=== PATIENT | female | born 1955 | race African-American/Black ===

== ENCOUNTER 2019-02-18 06:03 | Day surgery (SDC) | payer OTHER ==
[2019-02-10 13:41] VITALS: BMI 22.4
[2019-02-18] MEDS ORDERED: MIDAZOLAM HCL 2 MG/2 ML SINGLE DOSE VIAL ONE (06:43)
[2019-02-18] MEDS ORDERED: ROPIVACAINE HCL 0.5% 30ML VIAL ONE (06:43)
[2019-02-18] MEDS ORDERED: EPHEDRINE SULFATE/0.9% NACL/PF 50 MG/10 ML SYRINGE NR ONE (07:20)
[2019-02-18] MEDS ORDERED: PROPOFOL 20 ML ONE ×2 (07:44→09:15)
[2019-02-18] MEDS ORDERED: BENZOIN/ALOE VERA/STORAX/TOLU 58 ML BOTTLE ONE (09:11)
--- NOTE | 2019-02-18 09:43 | PN ---
Progress Note (short form) - Note Progress Note: 63F s/p RIGHT shoulder open Treva procedure, Neer Decompression, & full thickness primary rotator cuff repair POD #0. -Pain control: Vicodin, NSAID's ordered. -Incentive spirometry. -No chemical DVT PPx. -RUE sling. -No RIGHT shoulder ROM. -Daily RIGHT elbow, wrist & hand ROM. -Keep dressing clean & dry. -f/u in [facility] in 7-10 days; call for appointment; . Amari Thakur MD (Orthopaedic Surgery).
--- NOTE | 2019-02-18 09:45 | OP ---
Operative Note - Note: Operative Date: 02/18/19 Pre-Operative Diagnosis: Right shoulder impingement syndrome and rotator cuff tear Operation: Right shoulder open: 1. Treva procedure. 2. Neer decompression. 3. Primary rotator cuff repair (5 x #1 vicryl stitches) Findings: Full thickness anterolateral supraspinatus tear Post-Operative Diagnosis: Same as Pre-op Surgeon: Amari Thakur Hand Candy Cutter: Braden Thakur Anesthesiologist/EQUAL OPPORTUNITY REPRESENTATIVE: hSady Luz Anesthesia: General, Local Specimens Removed: Excision arthroplasty AC joint Estimated Blood Loss (mls): 25 Fluid Volume Replaced (mls): 800 (Crystalloid) Operative Report Dictated: Yes
[2019-02-18 11:10] VITALS: TEMP 97.7
[2019-02-18 12:24] VITALS: BP 112/73; PULSE 75
--- NOTE | 2019-03-04 09:54 | OP ---
Date of Operation: 02/18/2019 Surgeon: Amari Thakur MD Milk Bottler: Braden Thakur MD Pre-Operative Diagnosis: Right shoulder: 1. Impingement syndrome. 2. Rotator cuff derangement. Post-Operative Diagnosis: Right shoulder: 1. Impingement syndrome. 2. Rotator cuff tear. Surgical Procedure: Right shoulder open: 1. Treva procedure (distal clavicle excision); (37833). 2. Neer decompression (undercutting acromioplasty and coraco-acromial ligament release); (84183). 3. Primary rotator cuff repair; (91367). Findings: 1. Full-thickness supraspinatus tear. Anesthesia: General (LMA), Regional (interscalene block). Position: Beach chair. Incision: Oblique. Estimated Blood Loss: 25cc. Intravenous Fluid: 800cc crystalloid. Specimens: Excision arthroplasty right AC joint. Drains: None. Complications: None. Urine output: None. Bacteriology: None. Transfusions: None. Closure: #1 Vicryl. 3-0 Biosyn. Indications: The patient is a 63 year old female who was indicated for an open right shoulder distal claviculectomy (Treva procedure), coraco-acromial ligament release & Acromioplasty (Neer Decompression), and possible rotator cuff repair in order to ameliorate the symptoms associated with shoulder impingement syndrome and possible associated rotator cuff pathology. The patient was identified in the holding area by her armband. A long discussion was held with the patient regarding the risks, benefits and alternatives of the above-named procedure. Risks include but are not limited to : pain, bleeding, infection, damage to surrounding structures (including nerves , blood vessels, skin, ligaments, tendons and bone), reflex sympathetic dystrophy (RSD), wound complications, failure of repair, need for further surgery, blood clots, myocardial infarction, pulmonary embolism, anesthesia complications, compartment syndrome, limb loss, limp, loss of function, cerebrovascular event, and . Benefits as mentioned above. Alternatives include no surgery. All questions were answered. The patient and her family understood and agreed to the procedure. Informed consent was obtained, witnessed and verified. The patients correct operative limb - the right upper extremity - was marked, and the anesthesia team administered an ipsilateral interscalene nerve block. The patient was then taken to the operating room after being seen by the anesthesia and nursing staff. Procedure: The patient was brought into the operating room, placed supine on the OR table and secured with a safety strap. Consent and the operative site was again verified with the patient and nursing and anaesthesia staff. Anaesthesia & antibiotics were then administered without complication. A time-out was done led by , the attending surgeon. The patient was positioned with all bony prominences well padded. A soft bump was placed under the inferior pole of the ipsilateral scapula and the patient was placed in a beach chair position. The operative limb was prepped in standard sterile fashion using betadine prep & scrub, wiped off with alcohol, DuraPrep then applied, and then free draped. A time-out was repeated, and the case began. An incision was made in the lines of Clifford from the coracoid process to the midbody of the acromion. The deltoid was identified and protected. Subcutaneous dissection was carried with electrocautery down to the level of the distal clavicle. With the distal clavicle exposed, sharp Hohmann retractors were placed around the inferior aspects of the anterior and posterior surfaces of the distal clavicle to elevate it. The acromioclavicular (AC) joint was clearly identified and the AC ligament was incised using a 15-blade. The distal 1cm of the clavicle was marked for excision. An oscillating saw was used to perform a distal clavicular osteotomy. A beveled angular cut was made to avoid leaving a sharp inferior corner to impinge on the rotator cuff below. The excision arthroplasty of the distal clavicle was completed and excised from its capsular attachments using a 15-blade. The soft tissues of the joint were saved for later closure. Throughout the case, hemostasis was assured using either monopolar or bipolar electrocautery. Next, the deltoid was elevated using an [facility] retractor, revealing the coraco-acromial (CA) ligament below. The CA ligament was incised longitudinally using a fresh 15-blade. The CA ligament was then fully released proximally and distally using Metzenbaum scissors. With the CA ligament fully decompressed, the subacromial space became accessible. This space was extremely tight. The AC joint capsule was neatly dissected to expose the distal acromion. A blunt Hohmann retractor was placed on the undersurface of the acromion, levering the humeral head down, and protecting the underlying structures. Next, the oscillating saw was used to osteotomize the undersurface of the acromion with a beveled cut. A straight 1/2" osteotome was used to complete the cut and to free the excised segment of bone. The osteotomized acromioplasty bone fragment was then removed using a rongeur with a 15-blade to release any soft tissue attachments. Next, with finger palpation, an entire finger was delivered into the sub- acromial space and bursal adhesions were released using manual finger debridement. The shoulder was then taken through a full range of motion where a full thickness tear of the supraspinatus tendon was visualized. 5 #1 vicryl sutures were used in simple interrupted fashion to bridge and repair the rotator cuff derangement. The wound was copiously irrigated throughout the case using normal saline solution. Hemostasis was assured and the wound was closed primarily using #1 Vicryl sutures. The skin was closed using a 3-0 Biosyn subcuticular suture. A sterile, compressive dressing was applied. The sponge and needle counts were correct at the end of the case and I, the attending surgeon, was present and scrubbed throughout the case. The patient was then transferred to a hospital stretcher and to the recovery room in stable condition, having tolerated the procedure well. A sling was applied at the end of the case. MD PEBBLES Priest/[id number] MTDD
== END 2019-02-18 12:00 | disposition home or self-care (01) ==
LOC: FASU 06:03
PROVIDERS: ATTEND Orthopaedic Surgery Orthopaedic Surgery of the Spine
PROC: 0MN10ZZ Release Right Shoulder Bursa and Ligament, Open Approach (ICD-10-PCS; 2019-02-18)
PROC: 0LQ10ZZ Repair Right Shoulder Tendon, Open Approach (ICD-10-PCS; 2019-02-18)
PROC: 0PB90ZZ Excision of Right Clavicle, Open Approach (ICD-10-PCS; principal; 2019-02-18 08:41)
DX: M75.121 Complete rotator cuff tear or rupture of right shoulder, not specified as traumatic (principal); M75.41 Impingement syndrome of right shoulder
CPT/HCPCS: 94760